=== PATIENT | female | born 1955 | race African-American/Black ===

== ENCOUNTER 2019-05-03 11:22 | Emergency (ER) | payer OTHER ==
[~2019-05-03] VITALS: Ht 160 cm; Wt 65.9 kg
[~2019-05-03 11:22] MED LIST: ALBU8.5H8 IH; AMLO2.5T4 PO; ASPI1CPM8 PO; ATOR40TA28 PO; MAGN500C4 PO
[2019-05-03] MEDS ORDERED: PLAN450T2 PO (11:32)
[2019-05-03] MEDS ORDERED: ASPI81 PO (11:32)
[2019-05-03] MEDS ORDERED: CALC-789 PO (11:32)
[2019-05-03] MEDS ORDERED: PHENAZOPYRIDINE HCL 100 MG TABLET PO ONE (12:30)
[2019-05-03] MEDS ORDERED: CEPHALEXIN MONOHYDRATE 500 MG CAPSULE PO ONE (12:30)
[2019-05-03 13:23] LABS: APPEARANCE,URINE CLOUDY (CLEAR); BILIRUBIN,URINE NEGATIVE (NEGATIVE); GLUCOSE, URINE (UA) NEGATIVE (NEGATIVE); KETONES,URINE NEGATIVE (NEGATIVE); LEUKOCYTE ESTERASE ,URINE LARGE (NEGATIVE); NITRATE,URINE POSITIVE (NEGATIVE); OCCULT BLOOD,URINE LARGE (NEGATIVE); PH,URINE 6.5 (5.0-8.0); PROTEIN,URINE POS 1+ (NEGATIVE)
[2019-05-03 13:31] LABS: RBC,URINE 51-100 /HPF (0-2)
[2019-05-03 13:32] LABS: BACTERIA,URINE Moderate /HPF (None Seen); SQUAMOUS EPITHELIAL CELL,UR Moderate /LPF (None Seen); WBC,URINE 26-50 /HPF (0-5)
[2019-05-03 13:39] VITALS: BP 140/80
== END 2019-05-03 14:18 | disposition home or self-care (01) ==
LOC: EMS 11:23
DX: S46.911A Strain of unspecified muscle, fascia and tendon at shoulder and upper arm level, right arm, initial encounter (principal); N39.0 Urinary tract infection, site not specified; I10 Essential (primary) hypertension; E78.00 Pure hypercholesterolemia, unspecified; J45.909 Unspecified asthma, uncomplicated; F17.210 Nicotine dependence, cigarettes, uncomplicated; Z79.82 Long term (current) use of aspirin; X50.9XXA Other and unspecified overexertion or strenuous movements or postures, initial encounter; Y93.89 Activity, other specified; Y92.89 Other specified places as the place of occurrence of the external cause; Y99.8 Other external cause status
CPT/HCPCS: 87086; 99406

== ENCOUNTER 2024-06-01 09:46 | Emergency (ER) | payer OTHER ==
[~2024-06-01] VITALS: Ht 170.2 cm; Wt 61.4 kg
[~2024-06-01 09:46] MED LIST changes: -ALBU8.5H8 IH; -AMLO2.5T4 PO; +ASPI-1450 PO; -ASPI1CPM8 PO; -ATOR40TA28 PO; +CALC-789 PO; -MAGN500C4 PO; +PLAN450T2 PO
[2024-06-01 09:56] VITALS: TEMP 98.2
[2024-06-01 10:07] LABS: APPEARANCE,URINE CLEAR (CLEAR); BILIRUBIN,URINE NEGATIVE (NEGATIVE); COLOR,URINE COLORLESS (YELLOW); GLUCOSE, URINE (UA) NEGATIVE (NEGATIVE); KETONES,URINE NEGATIVE (NEGATIVE); LEUKOCYTE ESTERASE ,URINE NEGATIVE (NEGATIVE); NITRATE,URINE NEGATIVE (NEGATIVE); OCCULT BLOOD,URINE NEGATIVE (NEGATIVE); PH,URINE 6.5 (5.0-8.0); PROTEIN,URINE NEGATIVE (NEGATIVE); SPECIFIC GRAVITIY, URINE 1.007 (1.003-1.030); UROBILINOGEN,URINE <=1.0 mg/dL (<=1.0)
[2024-06-01] MEDS ORDERED: DEXAMETHASONE SOD PHOS 4 MG/ML 5 ML VIAL IVP ONE (11:30)
[2024-06-01] MEDS ORDERED: EPINEPHrine 1:1,000 [1 MG/ML] VIAL IM ONE (11:30)
[2024-06-01] MEDS ORDERED: CEPH-558 PO (12:09)
[2024-06-01 12:11] VITALS: BP 139/69; PULSE 89; RESP 18; O2SAT 99
== END 2024-06-01 12:27 | disposition home or self-care (01) ==
LOC: EMS 09:46
DX: R30.0 Dysuria (principal); J45.909 Unspecified asthma, uncomplicated; I10 Essential (primary) hypertension; I25.2 Old myocardial infarction; F17.210 Nicotine dependence, cigarettes, uncomplicated; Z86.73 Personal history of transient ischemic attack (TIA), and cerebral infarction without residual deficits
CPT/HCPCS: 81003; 99283